=== PATIENT | female | born 1945 | race Caucasian/White ===

== ENCOUNTER 2020-11-25 10:49 | Outpatient (REF) | payer MEDICARE, SELFPAY ==
--- NOTE | ~2020-11-25 | XR_ITS ---
EXAMINATION: XR SHOULDER, RIGHT CLINICAL INFORMATION: Pain COMPARISON: None TECHNIQUE: Three views of the right shoulder. FINDINGS: Bone alignment is normal. No fracture or dislocation is seen. The glenohumeral joint is normal. There is mild arthritis at the acromioclavicular joint. Soft tissues are unremarkable. XR/XR shoulder RT min 2V IMPRESSION: Mild arthritis at the acromioclavicular joint.
== END 2020-11-25 10:50 | disposition home or self-care (01) ==
LOC: HO.HOSX 10:49
PROVIDERS: Visit Provider Orthopaedic Surgery
DX: Z13.89 Encounter for screening for other disorder (principal)

== ENCOUNTER → 2020-11-27 10:44 | Outpatient (BNVA) | payer MEDICARE, SELFPAY | PROVIDERS: PCP Internal Medicine; Visit Provider Orthopaedic Surgery | DX: M75.41 Impingement syndrome of right shoulder (principal) | CPT/HCPCS: 20610; 73030; 99202; J1040 ==

== ENCOUNTER → 2020-12-17 13:16 | Outpatient (BNVA) | payer MEDICARE, SELFPAY | PROVIDERS: PCP Internal Medicine; Visit Provider Orthopaedic Surgery | DX: M75.41 Impingement syndrome of right shoulder (principal) | CPT/HCPCS: 20610; 99212; J1040 ==

== ENCOUNTER → 2021-01-03 09:06 | Outpatient (BNVA) | payer MEDICARE, SELFPAY | PROVIDERS: PCP Internal Medicine; Visit Provider Orthopaedic Surgery | DX: M75.41 Impingement syndrome of right shoulder (principal) | CPT/HCPCS: 99212 ==

== ENCOUNTER → 2021-02-04 15:10 | Outpatient (BNVA) | payer MEDICARE, SELFPAY | PROVIDERS: PCP Internal Medicine; Visit Provider Orthopaedic Surgery | DX: M75.42 Impingement syndrome of left shoulder (principal) | CPT/HCPCS: 20610; 99212; J1040 ==

== ENCOUNTER 2021-02-24 07:01 | Outpatient (REF) | payer SELFPAY | END 2021-02-24 07:02 | disposition home or self-care (01) | LOC: HO.MMNH1L 07:01 | PROVIDERS: Visit Provider Family Medicine | DX: Z13.89 Encounter for screening for other disorder (principal) ==

== ENCOUNTER → 2021-06-12 13:09 | Outpatient (BNVA) | payer MEDICARE, SELFPAY | PROVIDERS: Visit Provider Physician Assistant | DX: M75.41 Impingement syndrome of right shoulder (principal); M75.42 Impingement syndrome of left shoulder | CPT/HCPCS: 20610; 99212; J1040; J1100 ==

== ENCOUNTER → 2021-06-17 12:53 | Outpatient (BNVA) | payer MEDICARE, SELFPAY | PROVIDERS: PCP Internal Medicine; Visit Provider Nurse Practitioner Family | DX: M50.30 Other cervical disc degeneration, unspecified cervical region (principal); M75.52 Bursitis of left shoulder; M75.51 Bursitis of right shoulder; G20 Parkinson's disease; I10 Essential (primary) hypertension; Z96.652 Presence of left artificial knee joint; Z95.5 Presence of coronary angioplasty implant and graft; Z88.8 Allergy status to other drugs, medicaments and biological substances | CPT/HCPCS: 99202 ==

== ENCOUNTER → 2021-07-04 10:29 | Outpatient (BNVA) | payer MEDICARE, SELFPAY | PROVIDERS: PCP Internal Medicine; Visit Provider Physician Assistant | DX: M75.41 Impingement syndrome of right shoulder (principal) | CPT/HCPCS: 99212 ==

== ENCOUNTER → 2021-07-08 14:44 | Outpatient (BNVA) | payer MEDICARE, SELFPAY | PROVIDERS: PCP Internal Medicine; Visit Provider Nurse Practitioner Family | DX: M75.42 Impingement syndrome of left shoulder (principal); M75.41 Impingement syndrome of right shoulder; M54.16 Radiculopathy, lumbar region; M96.1 Postlaminectomy syndrome, not elsewhere classified; M53.9 Dorsopathy, unspecified; F11.90 Opioid use, unspecified, uncomplicated | CPT/HCPCS: 99212 ==

== ENCOUNTER → 2021-07-22 11:01 | Outpatient (BNVA) | payer MEDICARE, SELFPAY | PROVIDERS: PCP Internal Medicine; Visit Provider Nurse Practitioner Family | DX: Z01.812 Encounter for preprocedural laboratory examination (principal); M75.42 Impingement syndrome of left shoulder; M75.41 Impingement syndrome of right shoulder; M54.16 Radiculopathy, lumbar region; M53.9 Dorsopathy, unspecified; M96.1 Postlaminectomy syndrome, not elsewhere classified; F11.90 Opioid use, unspecified, uncomplicated; Z88.8 Allergy status to other drugs, medicaments and biological substances; Z79.899 Other long term (current) drug therapy | CPT/HCPCS: 99212 ==

== ENCOUNTER 2021-07-22 11:39 | Outpatient (REF) | payer MEDICARE, SELFPAY ==
[2021-07-22 14:53] LABS: Blood Urea Nitrogen 25 mg/dL (9-16); Estimated Glomerular Filt Rate > 60
== END 2021-07-22 11:40 | disposition home or self-care (01) ==
LOC: HO.10HDL 11:39
PROVIDERS: Visit Provider Nurse Practitioner Family
DX: Z01.812 Encounter for preprocedural laboratory examination (principal)
CPT/HCPCS: 36415; 82565; 84520

== ENCOUNTER 2021-07-23 13:26 | Outpatient (REF) | payer MEDICARE, SELFPAY ==
--- NOTE | ~2021-07-23 | MR_ITS ---
EXAMINATION: MR LUMBAR SPINE WITHOUT AND WITH CONTRAST CLINICAL INFORMATION: 75-year-old with lumbar radiculopathy. History of previous surgery. COMPARISON: None TECHNIQUE: MRI of the lumbar spine was obtained using routine sequences with and without contrast. Intravenous contrast: Gadavist 7.5 mL. FINDINGS: Coronal Alignment: There is utjjimio-qo-tuuifb upper lumbar levoscoliosis. Sagittal Alignment: There is metallic hardware artifact from L3 to L5 noted consistent with previous posterior instrumented fusions. There is slight retrolisthesis at the T12-L1 level. There is normal lumbar lordotic curvature. Lumbosacral Junction: Transitional anatomy with lowest lumbar-like segment labeled as L5, which is partially sacralized on the left. Vertebral Bodies: Normal height. Disc Spaces and Endplates: Severe disc space height loss, disc desiccation and Schmorl's nodes at L2-L3 with moderate anterolateral spondylosis. Dydwerwl-ok-mfrzgi disc space height loss asymmetric to the right at L1-L2 with disc desiccation and Schmorl's nodes with olhn-hl-wciawumt spondylosis, with moderate disc space height loss, Schmorl's nodes and mild spondylosis at T12-L1. Bqvsizlr-lm-xoeshn disc space height loss, with Schmorl's nodes and spondylosis also noted between T11-T12 and T9-T10 inclusive which is only visualized in the sagittal sequences. Spinal Canal: No abnormal developmental findings. Bone Marrow: No suspicious marrow-replacing process or bone marrow edema within the limitations of the exam with metallic hardware artifact partially obscuring the L3, L4 and L5 levels. There are degenerative marrow signal changes seen along the endplates at L1-L2 and L2-L3. Conus Medullaris: Terminates at L2-L3. Morphology and signal is normal. No abnormal enhancement.. Intradural Nerve Roots: Within normal limits. No abnormal intradural enhancement within the limitations of the study, with ferromagnetic artifact partially obscuring the canal at the operative levels. L5-S1: Tiny right subarticular to foraminal disc protrusion without neural impingement. Posterolateral disc-osteophyte complex noted on the left with mild encroachment on the left neural foramen. Minor facet arthrosis on the right. No significant canal stenosis. Mild left-sided neural foraminal narrowing is noted without definite neural impingement. L4-L5: Status post laminectomy and posterior instrumented fusion, with a widely patent canal. There is mild bony neural foraminal narrowing on the left without neural impingement. Suspect some postoperative scar tissue in the left subarticular zone. L3-L4: Status post laminectomy and posterior instrumented hardware fusion with interbody fusion hardware with a widely patent canal. No significant neural foraminal compromise. L2-L3: Disc bulging is noted with a superimposed right subarticular to foraminal disc herniation, with boee-kg-sskecwtt flattening of the dural sac asymmetric to the right. The facets are partially obscured by pedicle screw artifact but some hypertrophy is seen bilaterally, and there is mild right subarticular recess stenosis without significant central spinal canal stenosis. There is mild left-sided and yyazkzok-ll-tqdoxa right-sided neural foraminal stenosis with disc-osteophyte complex encroaching on the exiting right L2 nerve root. L1-L2: Posterolateral disc-osteophyte complex asymmetric to the right, with smrh-jt-sozwfucm flattening of the dural sac and mild right-sided facet arthropathy with moderate right-sided neural foraminal stenosis without significant canal stenosis. T12-L1: Mild retrolisthesis is noted with a right paramedian to subarticular extruded disc herniation with slight cephalad migration and vkuk-aq-qjxengoq flattening of the dural sac on the right with moderate narrowing of the right subarticular zone without significant central spinal canal stenosis. There is left subarticular to foraminal disc-osteophyte complex as well, and there is minor facet arthropathy. There is nktb-ak-vjwtsdot right-sided neural foraminal stenosis. T11-T12: Left paramedian to subarticular extruded disc herniation with slight cephalad migration noted with indentation of the ventral thecal sac on the left without cord impingement or foraminal encroachment. No significant canal or neural foraminal stenosis. Paraspinal/Retroperitoneal: The visualized paravertebral soft tissues demonstrate rvwwptbt-ux-juxalu diffuse posterior paraspinal muscle volume loss and bilateral psoas muscle volume loss. There are multiple probable small left renal cysts, most of which are only visualized on postcontrast imaging and only one of which is seen to be T2 hyperintense on the axial T2-weighted images. Probable small cysts in the upper and lower poles of the right kidney. Limited assessment. No specific follow-up for these recommended based on the current ACR best practice guidelines. MR/MR lumbar spine wo/w con IMPRESSION: 1. Fqflwevu-ej-nsgnhu upper lumbar levoscoliosis, with evidence of previous instrumented fusions at L3-L4 and L4-L5 with bilateral laminectomies, with widely patent canal at these levels. Probable postoperative scar tissue in the left subarticular zone at L4-L5. 2. Discogenic degenerative changes at L2-L3, L1-L2, T12-L1, and T11-T12 as well as T10-T11. There is mild right subarticular recess stenosis at L2-L3, with disc bulging, facet arthropathy and right subarticular to foraminal disc herniation at this level with ipsyijax-pq-svldog right-sided neural foraminal stenosis, with impingement on the exiting right L2 nerve root. 3. Disc-osteophyte complex at L1-L2 asymmetric to the right, with facet arthropathy on the right with moderate right-sided neural foraminal stenosis. 4. Right paramedian to subarticular extruded disc herniation with cephalad migration at T12-L1 with narrowing of the right subarticular zone and seho-ci-iaofzdje right-sided neural foraminal stenosis. 5. Left paramedian to subarticular extruded disc herniation at T11-T12, as detailed above.
== END 2021-07-23 13:27 | disposition home or self-care (01) ==
LOC: HO.MRI 13:26
PROVIDERS: PCP Internal Medicine; Visit Provider Nurse Practitioner Family
DX: M54.16 Radiculopathy, lumbar region (principal); M53.9 Dorsopathy, unspecified
CPT/HCPCS: 72158; A9585

== ENCOUNTER → 2021-08-22 11:25 | Outpatient (BNVA) | payer MEDICARE, SELFPAY | PROVIDERS: PCP Internal Medicine; Visit Provider Nurse Practitioner Family | DX: Z51.81 Encounter for therapeutic drug level monitoring (principal); F11.20 Opioid dependence, uncomplicated; M75.42 Impingement syndrome of left shoulder; M75.41 Impingement syndrome of right shoulder; M54.16 Radiculopathy, lumbar region; M53.9 Dorsopathy, unspecified; M96.1 Postlaminectomy syndrome, not elsewhere classified | CPT/HCPCS: 99212 ==

== ENCOUNTER → 2021-09-19 10:56 | Outpatient (BNVA) | payer MEDICARE, SELFPAY | PROVIDERS: PCP Internal Medicine; Visit Provider Nurse Practitioner Family | DX: M75.42 Impingement syndrome of left shoulder (principal); M75.41 Impingement syndrome of right shoulder; M54.16 Radiculopathy, lumbar region; M53.9 Dorsopathy, unspecified; M96.1 Postlaminectomy syndrome, not elsewhere classified; F11.90 Opioid use, unspecified, uncomplicated; Z96.89 Presence of other specified functional implants | CPT/HCPCS: 99212 ==

== ENCOUNTER 2021-09-25 12:58 | Outpatient (REF) | payer MEDICARE, SELFPAY ==
--- NOTE | ~2021-09-25 | XR_ITS ---
EXAMINATION: XR BILATERAL SHOULDER CLINICAL INFORMATION: Pain COMPARISON: Previous right shoulder x-ray November 2020 TECHNIQUE: 3 views of each shoulder FINDINGS: RIGHT: Bone alignment is normal. No fracture or dislocation is seen. There is mild arthritis at the glenohumeral and acromioclavicular joints with small osteophytes. Soft tissues are unremarkable. LEFT: Bone alignment is normal. No fracture or dislocation is seen. Joint spaces are normal. Soft tissues are normal. There are median sternotomy wires. There is a vascular clip in the left side of the mediastinum. 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 There may be a coronary artery stent.. XR/XR shoulder LT min 2V IMPRESSION: Mild right shoulder arthritis. Normal-appearing left shoulder.
--- NOTE | ~2021-09-25 | XR_ITS ---
EXAMINATION: XR BILATERAL SHOULDER CLINICAL INFORMATION: Pain COMPARISON: Previous right shoulder x-ray November 2020 TECHNIQUE: 3 views of each shoulder FINDINGS: RIGHT: Bone alignment is normal. No fracture or dislocation is seen. There is mild arthritis at the glenohumeral and acromioclavicular joints with small osteophytes. Soft tissues are unremarkable. LEFT: Bone alignment is normal. No fracture or dislocation is seen. Joint spaces are normal. Soft tissues are normal. There are median sternotomy wires. There is a vascular clip in the left side of the mediastinum. 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 There may be a coronary artery stent.. XR/XR shoulder RT min 2V IMPRESSION: Mild right shoulder arthritis. Normal-appearing left shoulder.
== END 2021-09-25 12:59 | disposition home or self-care (01) ==
LOC: HO.HOSX 12:58
PROVIDERS: PCP Internal Medicine; Visit Provider Physician Assistant
DX: M75.42 Impingement syndrome of left shoulder (principal); M75.41 Impingement syndrome of right shoulder; F11.90 Opioid use, unspecified, uncomplicated
CPT/HCPCS: 20610; 73030; 99212; J1040